=== PATIENT | female | born 1945 | race Caucasian/White ===

== ENCOUNTER 2024-05-16 11:33 | Emergency (ER) | payer BC, SELFPAY ==
--- NOTE | ~2024-05-16 | XR_ITS ---
EXAMINATION: XR LUMBOSACRAL SPINE CLINICAL INFORMATION: pain COMPARISON: Pain. Fall 2 weeks ago. TECHNIQUE: Three views of the lumbosacral spine. FINDINGS: Moderate multilevel disc and facet degenerative changes. Grade 1 anterolisthesis of L4 on L5. Mild upper lumbar levocurvature. Vertebral body heights appear maintained. No lytic or sclerotic bony lesion identified. Paraspinal soft tissues appear unremarkable. Retrievable IVC filter, with a broken strut. Status post laparoscopic adjustable gastric band placement. XR/XR lumbar spine 2-3V IMPRESSION: No acute finding. Electronically signed by: Bruce Alarcon MD 05/16/2024 03:04 PM [facility]
--- NOTE | ~2024-05-16 | XR_ITS ---
EXAMINATION: XR HIP, RIGHT CLINICAL INFORMATION: pain COMPARISON: None available. TECHNIQUE: Two views of the right hip and frontal view of the pelvis. FINDINGS: No fracture identified. Alignment is anatomic. Hip joint space is maintained. Soft tissues appear unremarkable. Surgical clips project over the groins, bilaterally. Partially imaged IVC filter with a broken strut. XR/XR hip RT min 2V IMPRESSION: Findings as above. Electronically signed by: Bruce Alarcon MD 05/16/2024 03:01 PM [facility]
[2024-05-16 11:38] VITALS: BP 147/67; BP 210/92; PULSE 52; PULSE 71; RESP 18; TEMP 36.3; O2SAT 97; O2SAT 99; BMI 45.7
--- NOTE | 2024-05-16 12:14 | ED_ITS ---
HPI - Back Pain/Injury General Chief Complaint: Back Pain/Injury Stated Complaint: R HIP LOWER BACK PAIN Time Seen by Provider: 05/16/24 11:34 Source: patient, family and EMS Mode of arrival: EMS Limitations: no limitations History of Present Illness ED Provider: BEBA TRISTAN Narrative: 78 yo female with PMH of CVA on coumadin, hypothyroidism, HLD, GERD who is from home - 2 weeks ago fell backwards did hit head no LOC she has not had a headache, confusion, vomiting. She notes low back pain on the R and R hip - she has not rested, she was lifiting 40lb cat litter, cement. She was up and busy all of Thanksgiving last night her back was very sore and this AM she could barely get up. She tooks some tylenol with relief. She has no b/b incontinence, no saddle anesthesia. She keeps aggravating her back pain with lifting, bending, twisting. MD elicited complaint: back pain and fall Pertinent past history: recent trauma Onset (ago): week(s) (2) Timing: intermittent Severity: moderate Similar Symptoms Previously: No Quality: sharp and throbbing Location: lumbar spine Radiation: buttocks Exacerbating factors: movement, lifting and other Relieving factors: immobilization Context: while lifting, turning/twisting and fall Associated symptoms: denies other symptoms Treatments prior to arrival: acetaminophen Work related injury: No Related Data Previous Rx's ?Medication ?Instructions ?Recorded lidocaine 4 % topical patch 1 patch topical DAILY PRN pain #10 05/16/24 ea Allergies Allergy/AdvReac Type Severity Reaction Status Date / Time No Known Allergies Allergy Verified 05/16/24 11:42 Review of Systems Review of Systems: Constitutional : No Weight loss, No Fever, No Chills, ENT/Mouth : No Hearing loss, No Ear Pain, No Nasal Congestion, No Sinus Pain, No Hoarseness, No sore throat, No Rhinorrhea, No Swallowing Difficulty Cardiovascular : No Chest Pain, No SOB Respiratory : No Cough, No Dyspnea Gastrointestinal : No Nausea, No Vomiting, No Diarrhea, No abdominal Pain, No Hematochezia, No Melena Genitourinary : No Dysuria, No Urinary Frequency, No Hematuria, No Urinary Incontinence, Musculoskeletal : positive back pain Skin : No Skin Lesions, No rash Neuro : No Weakness, No Numbness, No Paresthesias, no loss of bowel or bladder incontinence, no saddle anesthesia All other systems negative and reviewed. [facility] Past Medical History Attestation statement: The following information was validated with the patient. Source: old records reviewed Medical History (Updated 05/16/24 @ 14:33 by Neelima Méndez DO) Acute CVA (cerebrovascular accident) Hypothyroidism GERD (gastroesophageal reflux disease) Social History Social History (Updated 05/16/24 @ 12:22 by Neelima Méndez DO) Patient Tobacco Use Status: Never used Tobacco Advance Directives: Yes Advance Directives Information Provided: Yes Advance Directives on File: No Do you have a plan to hurt others: No Plan Physical Exam Vital Signs: Vital Signs: Last Vital Signs Temp 97.4 F 05/16/24 11:38 Pulse 52 05/16/24 11:38 Resp 18 05/16/24 11:38 BP 147/67 H 05/16/24 11:38 Pulse Ox 97 05/16/24 11:38 O2 Del Method Room Air 05/16/24 11:38 BMI result Body Mass Index 45.7 Appearance: Alert. Oriented X3. No acute distress. Eyes: Pupils equal, round and reactive to light. ENT: Pharynx normal. Neck: Normal inspection. Neck supple. CVS: Normal heart rate and rhythm. Pulses normal. Respiratory: No respiratory distress. Breath sounds normal. Abdomen: Soft and nontender. Back: R PSIS pain Skin: Skin warm and dry. Normal skin color. Normal skin turgor. Extremities: No lower extremity edema. No calf ttp Neuro: Oriented X 3. No motor deficit. No sensory deficit. SILT inner thigh, no clonus Course Course Course Narrative: daughter and patient aware of broken IVC filter strut they plan to call and follow up with Dr. Gutiérrez Medications Administered Discontinued Medications Generic Name Dose Route Start Last Admin Trade Name Freq PRN Reason Stop Dose Admin Lidocaine 1 patch 05/16/24 14:18 05/16/24 14:25 Lidocaine 4 % Patch Adh..Patch TRANSDERMA 05/16/24 14:19 1 patch ONCE ONE Administration Protocol Medical Decision Making Medical Decision Making [facility] Narrative: 78 yo female with PMH of CVA on coumadin, hypothyroidism, HLD, GERD who comes in with R low back pain but she is not resting. At this time I have ordered lumbar spine and R hip. She has no cauda equina she did hit head but given GCS 15, no headache, no n/v doubt ICH. Will start on lidocaine patches and refer to the PCP for MRI/PT Differential Diagnosis Differential Diagnoses: The differential diagnosis associated with the presentation includes radiculopathy, strain, compression fracture Admission/Observation Consideration of admission/observation: Escalation of care including admission/observation considered wants to go home I will call with any positive xray results she is up and walking to the bathroom Independent Interpretation I performed an independent interpretation of an: Plain X-Ray Radiology Impression Discussion of test interpretation with radiology: I have reviewed the radiologist's reading. Independent Historian Clinical information obtained from an independent historian. History obtained from or confirmed by: Other (daughter) External Record Review External record reviewed: Outpatient record Prescription Management I considered prescription management with: Pain Medication Discharge Plan Discharge Clinical Impression: Lumbar radiculopathy Strain of lumbar region Qualifiers: Encounter type: initial encounter Qualified Code(s): S39.012A - Strain of muscle, fascia and tendon of lower back, initial encounter Patient Disposition: Home, Self-Care Instructions: Acute Low Back Pain (ED), Lumbar Radiculopathy (ED) Additional Instructions: return for any worsening symptoms or concerns call your doctor Sunday for an appointment and physical therapy referral return for weakness, numbness, loss of control of bowel or bladder please stop lifting, bending down, twisting - anticipate the next 4 weeks at minimum Prescriptions: New lidocaine 4 % adhesive patch,medicated 1 patch topical DAILY PRN (Reason: pain) Qty: 10 0RF Rx Instructions: may leave on for up to 12 hrs Print Language: Azerbaijani
[2024-05-16] MEDS: Lidocaine 4 % Patch ADH..PATCH 1 PATCH TRANSDERMA (14:25)
[2024-05-16 15:03] VITALS: BP 151/64; PULSE 52; RESP 18; TEMP 36.2; O2SAT 98
== END 2024-05-16 15:12 | disposition home or self-care (01) ==
PROVIDERS: Emergency Provider Emergency Medicine; PCP Internal Medicine
DX: S39.012A Strain of muscle, fascia and tendon of lower back, initial encounter (principal); S79.911A Unspecified injury of right hip, initial encounter; X50.0XXA Overexertion from strenuous movement or load, initial encounter; X50.3XXA Overexertion from repetitive movements, initial encounter; Y93.89 Activity, other specified; Y92.89 Other specified places as the place of occurrence of the external cause; Y99.8 Other external cause status
CPT/HCPCS: 72100; 73502; 99282; 99283